=== PATIENT | female | born 1960 | race Caucasian/White ===

== ENCOUNTER → 2019-11-30 10:36 | Outpatient (BNVA) | payer OTHER, MEDICARE, SELFPAY | PROVIDERS: Family Provider Nurse Practitioner Family; PCP Nurse Practitioner Family; Visit Provider Nurse Practitioner Family | DX: E11.9 Type 2 diabetes mellitus without complications (principal); L03.90 Cellulitis, unspecified; I10 Essential (primary) hypertension | CPT/HCPCS: 80053; 81001; 83036; 83880; 85025; 87077; 87086; 87186 ==

== ENCOUNTER → 2019-12-09 13:41 | Outpatient (BNVA) | payer OTHER, MEDICARE, SELFPAY | PROVIDERS: Family Provider Nurse Practitioner Family; PCP Nurse Practitioner Family; Visit Provider Registered Nurse | DX: N39.0 Urinary tract infection, site not specified (principal); E11.9 Type 2 diabetes mellitus without complications | CPT/HCPCS: 81000 ==

== ENCOUNTER → 2020-04-16 10:51 | Outpatient (BNVA) | payer OTHER, MEDICARE, SELFPAY | PROVIDERS: Family Provider Nurse Practitioner Family; PCP Nurse Practitioner Family; Visit Provider Registered Nurse | DX: L02.91 Cutaneous abscess, unspecified (principal) | CPT/HCPCS: 87070; 87077; 87186 ==

== ENCOUNTER → 2020-06-29 08:57 | Outpatient (BNVA) | payer OTHER, MEDICARE, SELFPAY | PROVIDERS: Family Provider Nurse Practitioner Family; PCP Nurse Practitioner Family; Visit Provider Registered Nurse | DX: Z11.59 Encounter for screening for other viral diseases (principal); J06.9 Acute upper respiratory infection, unspecified | CPT/HCPCS: 87635 ==

== ENCOUNTER → 2021-02-04 11:07 | Outpatient (BNVA) | payer OTHER, MEDICARE, SELFPAY | PROVIDERS: Family Provider Nurse Practitioner Family; PCP Nurse Practitioner Family; Visit Provider Nurse Practitioner Family | DX: M79.606 Pain in leg, unspecified (principal); R25.2 Cramp and spasm; M54.5 Low back pain; Z79.899 Other long term (current) drug therapy | CPT/HCPCS: 80053; 82306; 83735 ==

== ENCOUNTER → 2021-02-18 14:03 | Outpatient (BNVA) | payer OTHER, MEDICARE, SELFPAY | PROVIDERS: Family Provider Nurse Practitioner Family; PCP Nurse Practitioner Family; Visit Provider Nurse Practitioner Family | DX: R35.0 Frequency of micturition (principal); R31.9 Hematuria, unspecified; E11.9 Type 2 diabetes mellitus without complications; M51.36 Other intervertebral disc degeneration, lumbar region; N30.00 Acute cystitis without hematuria | CPT/HCPCS: 81000; 87077; 87086; 87184 ==

== ENCOUNTER → 2021-03-28 11:00 | Outpatient (BNVA) | payer OTHER, MEDICARE, SELFPAY | PROVIDERS: Family Provider Nurse Practitioner Family; PCP Nurse Practitioner Family; Visit Provider Nurse Practitioner Family | DX: Z11.52 Encounter for screening for COVID-19 (principal); J22 Unspecified acute lower respiratory infection | CPT/HCPCS: 87635 ==

== ENCOUNTER → 2021-04-19 11:46 | Outpatient (BNVA) | payer OTHER, MEDICARE, SELFPAY | PROVIDERS: Family Provider Nurse Practitioner Family; PCP Nurse Practitioner Family; Visit Provider Registered Nurse | DX: E11.9 Type 2 diabetes mellitus without complications (principal); I10 Essential (primary) hypertension | CPT/HCPCS: 80053; 83036; 85025 ==

== ENCOUNTER 2021-09-26 08:42 | Outpatient (CLI) | payer OTHER, MEDICARE, SELFPAY ==
--- NOTE | 2021-09-26 09:30 | USCV_ITS ---
Nusrat Gant Age: 61 Gender: F : 1960 Exam Date: 09/26/2021 09:12 Ordering Phys: Octavia Ramires MD ([email or web address]) Technologist: SIRENA Exam Location: [facility] [place] Indication: Atrial flutter BP: 134 / 80 HR: 69 Rhythm: Sinus Technical Quality: Adequate MEASUREMENTS (Male / Female) Normal Values 2D ECHO LV Diastolic Diameter PLAX 5.1 cm 4.2 - 5.9 / 3.9 - 5.3 cm LV Systolic Diameter PLAX 3.5 cm IVS Diastolic Thickness 1.4 cm 0.6 - 1.0 / 0.6 - 0.9 cm IVS Systolic Thickness 1.8 cm LVPW Diastolic Thickness 1.0 cm 0.6 - 1.0 / 0.6 - 0.9 cm LVPW Systolic Thickness 1.9 cm LVOT Diameter 2.0 cm LV Ejection Fraction 2D Teich 58.6 % LV Ejection Fraction MOD 2C 63.0 % LV Ejection Fraction 2C AL 63.8 % LA Diameter 4.0 cm Aorta at Sinotubular Diameter 2.0 cm M-MODE Aortic Annulus Diameter 2.5 cm LA Ao Ratio MM 1.9 DOPPLER AV Peak Velocity 159.0 cm/s LVOT Peak Velocity 102.0 cm/s AV Area Cont Eq vti 2.1 cm squared AV Area Cont Eq pk 2.1 cm squared MV Area PHT 4.1 cm squared Mitral E to A Ratio 1.7 MV E' Velocity 107.0 cm/s TR Peak Velocity 381.0 cm/s TR Peak Gradient 58.1 mmHg TV Peak E Velocity 52.0 cm/s Right Atrial Pressure 3.0 mmHg Pulmonary Artery Systolic Pressu 61.1 mmHg PV Peak Velocity 89.0 cm/s RV Acceleration Time 0.1 s RV Ejection Time 0.4 s RV AcT/ET 0.3 FINDINGS Left Ventricle Normal left ventricular size, systolic function and wall thickness, with no regional wall motion abnormalities. Left ventricular ejection fraction is estimated at 65 %. Normal mitral inflow pattern. Right Ventricle Normal right ventricular size and systolic function. RVSP could not be calculated due to incomplete tricuspid regurgitation velocity profile. Right Atrium Normal right atrial size. Left Atrium Moderately increased left atrial size. Mitral Valve Mild mitral annular calcification. No mitral valve stenosis. Trace mitral valve regurgitation. Aortic Valve Aortic valve not well visualized. No aortic valve stenosis. No aortic valve regurgitation. Tricuspid Valve Tricuspid valve not well visualized. Pulmonic Valve Pulmonic valve not well visualized. No pulmonary valve stenosis. Pericardium No pericardial effusion. Prominent epicardial fat. Aorta Normal size aortic root and proximal ascending aorta. Normal sized inferior vena cava. CONCLUSIONS 1. This is a technically difficult study. Ultrasound enhancing agent (Optison) was used per protocol. 2. Normal left ventricular size, systolic function and mildly increased wall thickness, with no regional wall motion abnormalities. Left ventricular ejection fraction is estimated at 65 %. Normal mitral inflow pattern. 3. Normal right ventricular size and systolic function. 4. When compared to previous echocardial dated 08/25/2017, there may not have been any significant change. Octavia Ramires MD (Electronically Signed) Final Date: 28 September 2021 21:26 S
[2021-09-26] MEDS: perflutren protein-a microsphr 0.22 mg/mL SDV 3 mL IV (09:42)
== END 2021-09-26 08:43 | disposition home or self-care (01) ==
LOC: RAD 08:55
PROVIDERS: PCP Nurse Practitioner Family; Visit Provider Internal Medicine Cardiovascular Disease
DX: I48.92 Unspecified atrial flutter (principal); I48.91 Unspecified atrial fibrillation
CPT/HCPCS: C8929

== ENCOUNTER → 2021-11-07 08:33 | Outpatient (BNVA) | payer OTHER, MEDICARE, SELFPAY | PROVIDERS: PCP Nurse Practitioner Family; Visit Provider Nurse Practitioner Family | DX: N61.1 Abscess of the breast and nipple (principal); L02.91 Cutaneous abscess, unspecified | CPT/HCPCS: 87070; 87075; 87205 ==

== ENCOUNTER 2022-03-21 11:00 | Outpatient (CLI) | payer OTHER, MEDICARE, SELFPAY ==
[2022-03-21 11:59] LABS: Estmated Average Glucose 249; Hemoglobin A1C 10.3 % (4.0-6.0)
[2022-03-21 12:12] LABS: Alanine Aminotransferase 28 U/L (0-33); Albumin Level 3.9 g/dL (3.5-5.2); Alkaline Phosphatase 120 IU/L (35-105); Aspartate Amino Transferase 18 U/L (0-32); Blood Urea Nitrogen 14 mg/dL (8-23); Carbon Dioxide 29 mmol/L (22-29); Chloride 100 mmol/L (98-107); Chol HDL Ratio 4.71 mg/dL (0.0-4.40); Cholesterol 160 mg/dL (0-200); Globulin 3.4 g/dL (1.3-4.6); Glomerular Filtration Rate 85.1 mL/min (90-130); Glucose 225 mg/dL (65-115); HDL Cholesterol 34 mg/dL (60-100); LDL Cholesterol Calculated 84 mg/dL (50-129); LDL HDL Ratio 2.47 RATIO (0.00-3.22); Osmolality Calculated 294 mOsm/kg (285-295); Sodium 138 mmol/L (136-145); Total Bilirubin 0.5 mg/dL (0.15-1.2); Total Protein 7.3 g/dL (6.6-8.7); Triglycerides 209 mg/dL (0-150)
== END 2022-03-21 11:01 | disposition home or self-care (01) ==
LOC: LAB 11:07
PROVIDERS: PCP Nurse Practitioner Family; Visit Provider Internal Medicine
DX: E11.65 Type 2 diabetes mellitus with hyperglycemia (principal); E78.2 Mixed hyperlipidemia
CPT/HCPCS: 80053; 80061; 83036

== ENCOUNTER → 2022-03-28 10:14 | Outpatient (BNVA) | payer MEDICARE, OTHER, SELFPAY | PROVIDERS: PCP Nurse Practitioner Family; Visit Provider Internal Medicine | DX: F17.200 Nicotine dependence, unspecified, uncomplicated (principal); Z79.84 Long term (current) use of oral hypoglycemic drugs; E78.2 Mixed hyperlipidemia; E11.65 Type 2 diabetes mellitus with hyperglycemia; E11.42 Type 2 diabetes mellitus with diabetic polyneuropathy; Z79.4 Long term (current) use of insulin; S09.90XA Unspecified injury of head, initial encounter; Z87.440 Personal history of urinary (tract) infections; E66.01 Morbid (severe) obesity due to excess calories; Z68.42 Body mass index [BMI] 45.0-49.9, adult; X58.XXXA Exposure to other specified factors, initial encounter | CPT/HCPCS: 99214 ==

== ENCOUNTER → 2022-05-01 15:55 | Outpatient (BNVA) | payer MEDICARE, OTHER, SELFPAY | PROVIDERS: PCP Nurse Practitioner Family; Visit Provider Family Medicine | DX: N39.0 Urinary tract infection, site not specified (principal) | CPT/HCPCS: 81003; 87077; 87086; 87184 ==

== ENCOUNTER → 2022-05-30 09:20 | Outpatient (BNVA) | payer MEDICARE, OTHER, SELFPAY | PROVIDERS: PCP Nurse Practitioner Family; Visit Provider Nurse Practitioner Family | DX: N39.0 Urinary tract infection, site not specified (principal); N90.89 Other specified noninflammatory disorders of vulva and perineum | CPT/HCPCS: 81000 ==

== ENCOUNTER → 2022-07-28 10:39 | Outpatient (BNVA) | payer MEDICARE, OTHER, SELFPAY | PROVIDERS: PCP Nurse Practitioner Family; Visit Provider Internal Medicine Cardiovascular Disease | DX: R06.02 Shortness of breath (principal); I48.92 Unspecified atrial flutter; Z79.01 Long term (current) use of anticoagulants; I10 Essential (primary) hypertension; G47.33 Obstructive sleep apnea (adult) (pediatric); F17.210 Nicotine dependence, cigarettes, uncomplicated | CPT/HCPCS: 99214 ==

== ENCOUNTER → 2022-08-19 07:53 | Outpatient (BNVA) | payer OTHER, MEDICARE, SELFPAY | PROVIDERS: PCP Nurse Practitioner Family; Visit Provider Internal Medicine | DX: E11.65 Type 2 diabetes mellitus with hyperglycemia (principal); E11.42 Type 2 diabetes mellitus with diabetic polyneuropathy; E78.2 Mixed hyperlipidemia; S09.90XA Unspecified injury of head, initial encounter; Z87.440 Personal history of urinary (tract) infections; E66.01 Morbid (severe) obesity due to excess calories; Z68.42 Body mass index [BMI] 45.0-49.9, adult; Z79.4 Long term (current) use of insulin; R30.0 Dysuria; X58.XXXA Exposure to other specified factors, initial encounter | CPT/HCPCS: 81000; 99214 ==

== ENCOUNTER 2022-09-09 06:56 | Outpatient (CLI) | payer OTHER, MEDICARE, SELFPAY ==
--- NOTE | 2022-09-09 07:09 | NMCV_ITS ---
NM rock perf SPECT r/s* [id number] Nusrat Gant Age: 62 Gender: F : 1960 Exam Date: 09/09/2022 07:09 Ordering Phys: Octavia Ramires MD ([email or web address]) Technologist: MAURY Tripathi Exam Location: [facility] Indications: EXERTIONAL SHORTNESS OF BREATH STRESS TEST Please see separate stress test report in [facility] for full findings IMAGE PROTOCOL Rest/Stress 1 Lexiscan Day Radiopharmaceutical Dose (mCi) Administration Site Administered by Rest: Tc-99m 10.6 IV MAURY Sanders Sestamibi Stress:Tc-99m 33.0 IV MAURY Sanders Sestamibi Rest: 09-Sep-2022 60 Discovery 630 Stress: 09-Sep-2022 30 Discovery 630 0.4mg Lexiscan. Supine position only as patient was unable to lay prone. SPECT RESULTS Technical Quality: Excellent Raw Data Analysis: Normal Image Corrections: No attenuation or motion correction applied Summed Stress Score: 6 Summed Rest Score: 3 Summed Difference Score: 3 PERFUSION FINDINGS Small sized perfusion abnormality of moderate severity of apical anterior and apical lateral gallegos. FUNCTIONAL RESULTS (calculated via Gated SPECT) Stress Image LV EF (%): 76 Stress EDV (mL):116 TID: 1.09 Stress ESV (mL):28 FUNCTIONAL FINDINGS: The left ventricle is normal in size. Transient Ischemia Dilatation of 1.1. The left ventricular ejection fraction is normal with a value of 76%. There is normal left ventricular wall thickening. IMPRESSIONS 1. Small sized perfusion abnormality of moderate severity of apical anterior and apical lateral gallegos. This may represent attenuation artifact or old myocardial infarction in left anterior descending artery territory. 2. Overall left ventricular systolic function is normal without regional wall motion abnormalities, LVEF=76%. 3. EKG portion of the study will be reported separately. 4. No coronary ischemia based on this study. Octavia Ramires MD (Electronically Signed) Final Date: 09 September 2022 20:27 S
--- NOTE | 2022-09-09 07:09 | ECG_ITS ---
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 Interpretive Statements NAME OF STUDY: LEXISCAN SESTAMIBI STRESS TEST INDICATION: Shortness of Breath PROCEDURE: At the baseline, the blood pressure was 141/80 mm Hg with a heart rate of 77 bpm. The electrocardiogram showed sinus rhythm with artifact. ??? The Lexiscan was infused over a period of 20 seconds. A total of 0.4 milligrams of Lexiscan was infused. The stress phase was continued for a total of 5 minutes. Heart rate at the end of the stress phase was 80 bpm with a blood pressure of 131/84 mm Hg. The EKG at the peak infusion revealed no significant ST-T wave changes. Artifact. ??? Sestamibi was injected 20 seconds after the Lexiscan infusion. ??? Blood pressure at the end of the recovery phase was 129/83 mm Hg with a heart rate of 78 beats per minute. ??? CONCLUSION: 1. No significant EKG changes with the LexiScan infusion. 2. No LexiScan induced chest pain or cardiac arrhythmia. 3. Normal blood pressure and heart rate response. 4. Sestamibi/sestamibi perfusion scan pending; see separate report. Electronically Signed On 09-21-2022 10:26:46 [employer] EXHIBITOR by Octavia Ramires M.D. [id number]
[2022-09-09 07:22] VITALS: BMI 45.1
[2022-09-09] MEDS: regadenoson 0.4 Mg/5 ml Syringe IVP (08:51)
[2022-09-09 09:11] VITALS: BP 129/83; PULSE 81
== END 2022-09-09 06:57 | disposition home or self-care (01) ==
LOC: CDL 07:03
PROVIDERS: PCP Nurse Practitioner Family; Visit Provider Internal Medicine Cardiovascular Disease
DX: R06.02 Shortness of breath (principal)
CPT/HCPCS: 36415; 78452; 93017; 96374; A9500; J2785

== ENCOUNTER → 2022-12-04 12:45 | Outpatient (BNVA) | payer MEDICARE, OTHER, SELFPAY | PROVIDERS: PCP Nurse Practitioner Family; Visit Provider Internal Medicine | DX: E11.42 Type 2 diabetes mellitus with diabetic polyneuropathy (principal); E11.65 Type 2 diabetes mellitus with hyperglycemia; E78.2 Mixed hyperlipidemia; L84 Corns and callosities; E66.01 Morbid (severe) obesity due to excess calories; Z68.42 Body mass index [BMI] 45.0-49.9, adult; Z79.4 Long term (current) use of insulin | CPT/HCPCS: 36415; 80053; 80061; 82044; 83036; 99214 ==

== ENCOUNTER → 2022-12-10 10:08 | Outpatient (BNVA) | payer MEDICARE, OTHER, SELFPAY | PROVIDERS: PCP Nurse Practitioner Family; Visit Provider Podiatrist Foot & Ankle Surgery | DX: I73.9 Peripheral vascular disease, unspecified (principal); E11.9 Type 2 diabetes mellitus without complications; B35.1 Tinea unguium; Z79.4 Long term (current) use of insulin | CPT/HCPCS: 11721; 99203 ==

== ENCOUNTER → 2023-02-20 14:17 | Outpatient (BNVA) | payer MEDICARE, SELFPAY | PROVIDERS: PCP Registered Nurse; Visit Provider Obstetrics & Gynecology | DX: N39.0 Urinary tract infection, site not specified (principal) | CPT/HCPCS: 84315; 87077; 87086; 87184 ==

== ENCOUNTER → 2023-03-09 11:06 | Outpatient (BNVA) | payer MEDICARE, SELFPAY | PROVIDERS: PCP Registered Nurse; Visit Provider Podiatrist Foot & Ankle Surgery | DX: I73.9 Peripheral vascular disease, unspecified (principal); B35.1 Tinea unguium; E11.42 Type 2 diabetes mellitus with diabetic polyneuropathy; E11.65 Type 2 diabetes mellitus with hyperglycemia; Z79.4 Long term (current) use of insulin | CPT/HCPCS: 11721 ==

== ENCOUNTER 2023-03-27 10:25 | Outpatient (CLI) | payer MEDICARE, SELFPAY ==
[2023-03-27 11:18] LABS: Creatinine Urine, Random 159 mg/dL (28-217); Microalbum Creatinine Ratio Ur 6 mg/dL (0-20); Microalbumin Random Urine 1 ug/dL (0-20)
[2023-03-27 11:28] LABS: Alanine Aminotransferase 20 U/L (0-33); Albumin Level 3.7 g/dL (3.5-5.2); Alkaline Phosphatase 133 U/L (35-105); Anion Gap 16.2 (5-19); Aspartate Amino Transferase 19 U/L (0-32); Blood Urea Nitrogen 12 mg/dL (8-23); Calcium 8.8 mg/dL (8.5-10.5); Carbon Dioxide 25 mmol/L (22-29); Chloride 101 mmol/L (98-107); Chol HDL Ratio 4.76 mg/dL (0.0-4.40); Cholesterol 181 mg/dL (0-200); Globulin 3.4 g/dL (1.3-4.6); Glomerular Filtration Rate 84.8 mL/min (90-130); Glucose 280 mg/dL (65-115); HDL Cholesterol 38 mg/dL (60-100); LDL Cholesterol Calculated 109 mg/dL (50-129); LDL HDL Ratio 2.87 RATIO (0.00-3.22); Osmolality Calculated 296 mOsm/kg (285-295); Potassium 4.2 mmol/L (3.5-5.1); Sodium 138 mmol/L (136-145); Total Bilirubin 0.4 mg/dL (0.15-1.2); Total Protein 7.1 g/dL (6.6-8.7); Triglycerides 172 mg/dL (0-150)
[2023-03-27 11:54] LABS: Estmated Average Glucose 209; Hemoglobin A1C 8.9 % (4.0-6.0)
== END 2023-03-27 10:26 | disposition home or self-care (01) ==
PROVIDERS: PCP Registered Nurse; Visit Provider Internal Medicine
DX: E78.2 Mixed hyperlipidemia (principal); E11.65 Type 2 diabetes mellitus with hyperglycemia; Z79.4 Long term (current) use of insulin
CPT/HCPCS: 36415; 80053; 80061; 82044; 83036

== ENCOUNTER → 2023-04-10 07:32 | Outpatient (BNVA) | payer MEDICARE, SELFPAY | PROVIDERS: PCP Registered Nurse; Visit Provider Internal Medicine | DX: E78.2 Mixed hyperlipidemia (principal); E11.65 Type 2 diabetes mellitus with hyperglycemia; E11.42 Type 2 diabetes mellitus with diabetic polyneuropathy; Z79.4 Long term (current) use of insulin; E66.01 Morbid (severe) obesity due to excess calories; Z68.42 Body mass index [BMI] 45.0-49.9, adult | CPT/HCPCS: 99214 ==

== ENCOUNTER → 2023-04-27 10:22 | Outpatient (BNVA) | payer MEDICARE, OTHER, SELFPAY | PROVIDERS: PCP Registered Nurse; Visit Provider Internal Medicine Cardiovascular Disease | DX: R06.02 Shortness of breath (principal); I48.92 Unspecified atrial flutter; I10 Essential (primary) hypertension; G47.33 Obstructive sleep apnea (adult) (pediatric); F17.200 Nicotine dependence, unspecified, uncomplicated; Z86.16 Personal history of COVID-19 | CPT/HCPCS: 99214 ==

== ENCOUNTER → 2023-05-15 08:25 | Outpatient (BNVA) | payer MEDICARE, SELFPAY | PROVIDERS: PCP Registered Nurse; Visit Provider Podiatrist Foot & Ankle Surgery | DX: B35.1 Tinea unguium (principal); I73.9 Peripheral vascular disease, unspecified; E11.42 Type 2 diabetes mellitus with diabetic polyneuropathy; E11.65 Type 2 diabetes mellitus with hyperglycemia; Z79.4 Long term (current) use of insulin | CPT/HCPCS: 11721 ==

== ENCOUNTER → 2023-06-02 13:41 | Outpatient (BNVA) | payer MEDICARE, SELFPAY | PROVIDERS: PCP Registered Nurse; Visit Provider Registered Nurse | DX: R30.0 Dysuria (principal); N39.41 Urge incontinence | CPT/HCPCS: 81000 ==

== ENCOUNTER 2023-06-16 13:28 | Outpatient (RCR) | payer MEDICARE, SELFPAY | END 2023-06-30 23:59 | disposition home or self-care (01) | LOC: SPT 13:28 | PROVIDERS: PCP Registered Nurse; Visit Provider Registered Nurse | DX: N39.41 Urge incontinence (principal); N39.46 Mixed incontinence | CPT/HCPCS: 97110; 97161; 97530 ==

== ENCOUNTER → 2023-06-30 07:31 | Outpatient (BNVA) | payer MEDICARE, OTHER, SELFPAY | PROVIDERS: PCP Registered Nurse; Visit Provider Internal Medicine | DX: E78.2 Mixed hyperlipidemia (principal); E11.65 Type 2 diabetes mellitus with hyperglycemia; E11.42 Type 2 diabetes mellitus with diabetic polyneuropathy; Z79.4 Long term (current) use of insulin; E66.01 Morbid (severe) obesity due to excess calories; Z68.42 Body mass index [BMI] 45.0-49.9, adult | CPT/HCPCS: 99214 ==

== ENCOUNTER → 2023-07-17 07:42 | Outpatient (BNVA) | payer MEDICARE, SELFPAY | PROVIDERS: PCP Registered Nurse; Visit Provider Podiatrist Foot & Ankle Surgery | DX: B35.1 Tinea unguium (principal); I73.9 Peripheral vascular disease, unspecified; E11.42 Type 2 diabetes mellitus with diabetic polyneuropathy; E11.65 Type 2 diabetes mellitus with hyperglycemia; Z79.4 Long term (current) use of insulin | CPT/HCPCS: 11721 ==

== ENCOUNTER → 2023-08-18 11:27 | Outpatient (BNVA) | payer MEDICARE, SELFPAY | PROVIDERS: PCP Registered Nurse; Visit Provider Registered Nurse | DX: R39.9 Unspecified symptoms and signs involving the genitourinary system (principal); N39.0 Urinary tract infection, site not specified; N30.01 Acute cystitis with hematuria | CPT/HCPCS: 81000; 87077; 87086; 87184 ==

== ENCOUNTER → 2023-09-28 14:19 | Outpatient (BNVA) | payer MEDICARE, SELFPAY | PROVIDERS: PCP Registered Nurse; Visit Provider Podiatrist Foot & Ankle Surgery | DX: B35.1 Tinea unguium (principal); I73.9 Peripheral vascular disease, unspecified; E11.42 Type 2 diabetes mellitus with diabetic polyneuropathy; E11.65 Type 2 diabetes mellitus with hyperglycemia; Z79.4 Long term (current) use of insulin | CPT/HCPCS: 11721 ==

== ENCOUNTER → 2023-10-02 09:18 | Outpatient (BNVA) | payer MEDICARE, OTHER, SELFPAY | PROVIDERS: PCP Registered Nurse; Visit Provider Internal Medicine | DX: E78.2 Mixed hyperlipidemia (principal); E11.65 Type 2 diabetes mellitus with hyperglycemia; E11.42 Type 2 diabetes mellitus with diabetic polyneuropathy; Z79.4 Long term (current) use of insulin; S09.90XA Unspecified injury of head, initial encounter; E66.01 Morbid (severe) obesity due to excess calories; Z68.42 Body mass index [BMI] 45.0-49.9, adult; X58.XXXA Exposure to other specified factors, initial encounter | CPT/HCPCS: 99214 ==

== ENCOUNTER → 2024-01-01 07:43 | Outpatient (BNVA) | payer MEDICARE, SELFPAY | PROVIDERS: PCP Registered Nurse; Visit Provider Podiatrist Foot & Ankle Surgery | DX: I73.9 Peripheral vascular disease, unspecified (principal); B35.1 Tinea unguium; E11.42 Type 2 diabetes mellitus with diabetic polyneuropathy; E11.65 Type 2 diabetes mellitus with hyperglycemia; Z79.4 Long term (current) use of insulin; E78.2 Mixed hyperlipidemia | CPT/HCPCS: 11721; 36415; 80053; 80061; 82044; 83036; 99213 ==

== ENCOUNTER → 2024-01-04 09:09 | Outpatient (BNVA) | payer MEDICARE, SELFPAY | PROVIDERS: PCP Registered Nurse; Visit Provider Internal Medicine | DX: E11.65 Type 2 diabetes mellitus with hyperglycemia (principal); E78.2 Mixed hyperlipidemia; E11.42 Type 2 diabetes mellitus with diabetic polyneuropathy; Z79.4 Long term (current) use of insulin; S09.90XA Unspecified injury of head, initial encounter; E66.01 Morbid (severe) obesity due to excess calories; Z68.42 Body mass index [BMI] 45.0-49.9, adult; L84 Corns and callosities; X58.XXXA Exposure to other specified factors, initial encounter | CPT/HCPCS: 99214 ==

== ENCOUNTER → 2024-02-11 10:35 | Outpatient (BNVA) | payer MEDICARE, SELFPAY | PROVIDERS: PCP Registered Nurse; Visit Provider Registered Nurse | DX: R60.0 Localized edema (principal); J44.9 Chronic obstructive pulmonary disease, unspecified; J40 Bronchitis, not specified as acute or chronic; I10 Essential (primary) hypertension | CPT/HCPCS: 83880 ==

== ENCOUNTER 2024-03-04 11:18 | Outpatient (CLI) | payer MEDICARE, SELFPAY ==
--- NOTE | 2024-03-04 12:00 | CTR_ITS ---
PROCEDURE INFORMATION: Exam: CTA Abdominal Aorta and Bilateral Lower Extremities (Run-off) With Contrast Exam date and time: 03/04/2024 12:16 PM Age: 63 years old Clinical indication: Prior surgery; Surgery date: 6+ months; Surgery type: Hyst, appy; Patient HX: Poor circulation, lower extremities numbness and pain TECHNIQUE: Imaging protocol: Computed tomographic angiography of the of the abdominal aorta, pelvis and bilateral lower extremities with contrast. 3D rendering (Not supervised by radiologist): MIP and/or 3D reconstructed images were created by the technologist. Radiation optimization: All CT scans at this facility use at least one of these dose optimization techniques: automated exposure control; mA and/or kV adjustment per patient size (includes targeted exams where dose is matched to clinical indication); or iterative reconstruction. Contrast material: OMNI 350; Contrast volume: 125 ml; Contrast route: INTRAVENOUS (IV); COMPARISON: No relevant prior studies available. RADIATION DOSE METRICS: Total DLP (mGy-cm): 1777.07 FINDINGS: Aorta: Moderate atherosclerosis of the aorta without stenosis, occlusion, or aneurysms. Celiac trunk and mesenteric arteries: No occlusion or significant stenosis. Renal arteries: No occlusion or significant stenosis. Right iliac arteries: Near total occlusion proximal segments/takeoff right external iliac artery with distal reconstitution of flow. The area of severe stenosis appears to be of chronic etiology considering the abnormal decrease in vessel caliber at this segment. Right femoral/popliteal arteries: Small caliber right superficial femoral artery with mid/distal occlusion. Reconstitution of flow distal right superficial femoral artery by collateral circulation. Right popliteal artery patent without stenosis or occlusion. Right deep femoral artery patent. Right infrapopliteal arteries: Decreased enhancement distal segments right anterior tibial artery and right peroneal artery, likely related to inflow disease. Right posterior tibial artery patent. Right dorsalis pedis artery either occluded or with significantly decreased flow. Right plantar artery patent. Left iliac arteries: Ulcerated plaques with small intimal defects throughout the left common iliac artery. Left external iliac artery patent without significant stenosis. Left femoral/popliteal arteries: Left common femoral artery patent without stenosis. Left superficial femoral artery patent with at least 50% luminal stenosis at the mid segments and distal segments. Left popliteal artery patent without stenosis or occlusion. Left infrapopliteal arteries: Decreased contrast enhancement in the left anterior tibial and peroneal arteries with very minimal flow at the distal segments. This is likely related to severe inflow disease. Left posterior tibial artery completely patent without stenosis/occlusion. Left dorsalis pedis artery either occluded or with significantly decreased flow. Left plantar artery remains patent, however with decreased flow. Liver: 19 cm hepatomegaly and severe diffuse hepatic steatosis. No liver lesions. Scattered calcified liver granulomas are benign. Gallbladder and biliary ducts: Cholelithiasis. No biliary ductal dilation. Pancreas: Unremarkable. No mass. No ductal dilation. Spleen: The spleen demonstrates punctate calcifications, consistent with remote granulomatous organism exposure. Adrenal glands: 1.5 cm right adrenal nodule. Kidneys and ureters: Subcentimeter right renal hypodense lesions are too small to characterize but most probably benign representing cysts. Consider correlation with nonemergent ultrasound. 10 mm left renal lower pole exophytic enhancing or dense lesion. No hydronephrosis or perinephric inflammation. No hydroureter. Stomach and bowel: Moderate constipation without bowel inflammation or obstruction. Appendix: No evidence of appendicitis. Urinary bladder: Decompressed bladder. Reproductive: Hysterectomy. Intraperitoneal space: Unremarkable. No free air. No significant fluid collection. Lymph nodes: No lymphadenopathy. Bones/joints: Mild multilevel degenerative changes of the spine, as manifested by multilevel anterior osteophytes and multilevel decrease in intervertebral disc space. No acute skeletal abnormality or aggressive osseous lesion. Soft tissues: Unremarkable. CT/CT angio abd aorta runof [id number] IMPRESSION: 1. Near total occlusion proximal segments/takeoff right external iliac artery with distal reconstitution of flow. The area of severe stenosis appears to be of chronic etiology considering the abnormal decrease in vessel caliber at this segment. 2. Small caliber right superficial femoral artery with mid/distal occlusion. 3. Decreased enhancement distal segments right anterior tibial artery and right peroneal artery, likely related to inflow disease. 4. Right dorsalis pedis artery either occluded or with significantly decreased flow. 5. Decreased contrast enhancement in the left anterior tibial and peroneal arteries with very minimal flow at the distal segments. This is likely related to severe inflow disease. 6. Left dorsalis pedis artery either occluded or with significantly decreased flow. 7. Ulcerated plaques with small intimal defects throughout the left common iliac artery. 8. Left superficial femoral artery patent with at least 50% luminal stenosis at the mid segments and distal segments. 9. 1.5 cm right adrenal nodule. In a patient with no cancer history, consider 12 month follow-up adrenal CT. (Reference: Smith) 10. 10 mm left renal lower pole exophytic enhancing or dense lesion. Prompt evaluation with renal ultrasound recommended for adequate characterization. REFERENCES: Smith SMILEY et al. Management of Incidental Adrenal Masses: A White Paper of the ACR Incidental Findings Committee. J Am Stas Radiol. 2017;14(8):7558-5345.
[2024-03-04 12:06] LABS: Blood Urea Nitrogen 14 mg/dL (8-23); Glomerular Filtration Rate 84.5 mL/min (90-130)
[2024-03-04] MEDS: iohexol 350 mg/mL 500 mL Btl (per mL) IV (12:32)
== END 2024-03-04 11:19 | disposition home or self-care (01) ==
LOC: RAD 11:18
PROVIDERS: PCP Registered Nurse; Visit Provider Podiatrist Foot & Ankle Surgery
DX: I73.9 Peripheral vascular disease, unspecified (principal); I74.5 Embolism and thrombosis of iliac artery; I77.1 Stricture of artery; R93.6 Abnormal findings on diagnostic imaging of limbs; E27.8 Other specified disorders of adrenal gland; N28.9 Disorder of kidney and ureter, unspecified
CPT/HCPCS: 75635; 82565; 84520; 99214; Q9967

== ENCOUNTER → 2024-03-11 07:50 | Outpatient (BNVA) | payer MEDICARE, SELFPAY | PROVIDERS: PCP Registered Nurse; Visit Provider Podiatrist Foot & Ankle Surgery | DX: I73.9 Peripheral vascular disease, unspecified (principal); B35.1 Tinea unguium; E11.42 Type 2 diabetes mellitus with diabetic polyneuropathy; E11.65 Type 2 diabetes mellitus with hyperglycemia; Z79.4 Long term (current) use of insulin | CPT/HCPCS: 11721; 99213 ==

== ENCOUNTER → 2024-03-22 11:36 | Outpatient (BNVA) | payer MEDICARE, SELFPAY | PROVIDERS: PCP Registered Nurse; Visit Provider Internal Medicine | DX: R06.02 Shortness of breath (principal); I48.92 Unspecified atrial flutter; I10 Essential (primary) hypertension; E11.9 Type 2 diabetes mellitus without complications; E78.00 Pure hypercholesterolemia, unspecified; G47.33 Obstructive sleep apnea (adult) (pediatric); F17.200 Nicotine dependence, unspecified, uncomplicated; Z99.89 Dependence on other enabling machines and devices; Z79.4 Long term (current) use of insulin | CPT/HCPCS: 99214 ==

== ENCOUNTER → 2024-04-07 08:37 | Outpatient (BNVA) | payer MEDICARE, SELFPAY | PROVIDERS: PCP Registered Nurse; Visit Provider Internal Medicine | DX: E11.65 Type 2 diabetes mellitus with hyperglycemia (principal); E78.2 Mixed hyperlipidemia; E11.42 Type 2 diabetes mellitus with diabetic polyneuropathy; R21 Rash and other nonspecific skin eruption; Z79.4 Long term (current) use of insulin; S09.90XA Unspecified injury of head, initial encounter; E66.01 Morbid (severe) obesity due to excess calories; Z68.42 Body mass index [BMI] 45.0-49.9, adult; X58.XXXA Exposure to other specified factors, initial encounter | CPT/HCPCS: 99214 ==

== ENCOUNTER → 2024-04-11 10:16 | Outpatient (BNVA) | payer MEDICARE, OTHER, SELFPAY | PROVIDERS: PCP Registered Nurse; Visit Provider Internal Medicine Critical Care Medicine | DX: J84.9 Interstitial pulmonary disease, unspecified; J96.11 Chronic respiratory failure with hypoxia; J98.4 Other disorders of lung; J44.9 Chronic obstructive pulmonary disease, unspecified; J44.1 Chronic obstructive pulmonary disease with (acute) exacerbation; K21.9 Gastro-esophageal reflux disease without esophagitis; G47.33 Obstructive sleep apnea (adult) (pediatric); E66.01 Morbid (severe) obesity due to excess calories; Z68.41 Body mass index [BMI] 40.0-44.9, adult; F17.210 Nicotine dependence, cigarettes, uncomplicated; I10 Essential (primary) hypertension; I48.91 Unspecified atrial fibrillation; Z71.6 Tobacco abuse counseling; Z71.89 Other specified counseling | CPT/HCPCS: 99204 ==

== ENCOUNTER 2024-04-14 08:54 | Outpatient (CLI) | payer MEDICARE, OTHER, SELFPAY ==
--- NOTE | 2024-04-14 09:30 | CT_ITS ---
WS: [id number] CT chest wo con [id number] HISTORY: Progressive TORRES TECHNIQUE: Axial imaging performed through the thorax. Coronal and sagittal reformats are submitted. All CT scans at [facility] use at least one of these dose optimization techniques: automated exposure control; mA and/or kV adjustment per patient size (includes targeted exams where dose is mat ched to clinical indication); or iterative reconstruction. CONTRAST: None DLP: 750.27 mGy.cm COMPARISON: None available. Lungs and central airway: Markedly abnormal appearance of the lungs. Diffuse, bilateral and multi lob ar small nodular spiculations are identified. There are additional areas of mild groundglass attenuat ion. Slightly greater nodularity and spiculation in the lower lobes. There is no mass or dense consol idation. No pneumothorax. Pleura: Normal. No pleural effusion. Heart and pericardium: Mild cardiomegaly. Mediastinum and kyel: Would-be difficult to exclude hilar lymph nodes without IV contrast. There are small inferior RIGHT paratracheal lymph nodes measuring up to 12 mm. There are a few additional subce ntimeter lymph nodes scattered in the mediastinum. Vessels: Mildly prominent pulmonary artery measures 3.5 cm. Mild atherosclerosis aorta. Chest wall and lower neck: No soft tissue masses. Upper abdomen: Hepatic and splenic granulomata. The liver is incompletely included on this examinatio n but does appear large. Cholelithiasis. Mild thickening of the adrenal glands. Osseous structures: No destructive process. CT/CT chest wo con [id number] IMPRESSION: 1. Diffusely abnormal lungs. There are innumerable scattered slightly spiculat ed opacification throughout both lungs in a slightly tree-in-bud distribution s uggesting small airways disease. There is a slightly spiculated appearance this is probably related to an infectious process. Consider viral pneumonia, TB and fungal pneumonitis. Recommend follow-up after treatment to ensure resolution. 2. Mild cardiomegaly. 3. Indeterminate RIGHT paratracheal lymph node 12 mm. 4. Cholelithiasis.
== END 2024-04-14 08:55 | disposition home or self-care (01) ==
LOC: RAD 08:54
PROVIDERS: PCP Registered Nurse; Visit Provider Internal Medicine Critical Care Medicine
DX: R06.09 Other forms of dyspnea (principal); J96.11 Chronic respiratory failure with hypoxia; J98.4 Other disorders of lung; F17.200 Nicotine dependence, unspecified, uncomplicated; K80.20 Calculus of gallbladder without cholecystitis without obstruction; I51.7 Cardiomegaly; R91.8 Other nonspecific abnormal finding of lung field
CPT/HCPCS: 71250

== ENCOUNTER → 2024-04-18 11:17 | Outpatient (BNVA) | payer MEDICARE, OTHER, SELFPAY | PROVIDERS: PCP Registered Nurse; Visit Provider Registered Nurse | DX: J84.9 Interstitial pulmonary disease, unspecified (principal) | CPT/HCPCS: 82785; 85025; 86003 ==

== ENCOUNTER 2024-05-05 08:37 | Outpatient (CLI) | payer OTHER, MEDICARE, SELFPAY ==
[2024-05-05 09:31] VITALS: PULSE 77; RESP 18; O2SAT 92
[2024-05-05] MEDS: albuterol 2.5 mg/3 mL Neb INHALATION (09:31)
== END 2024-05-05 08:38 | disposition home or self-care (01) ==
LOC: RT 08:38
PROVIDERS: PCP Registered Nurse; Visit Provider Internal Medicine Critical Care Medicine
DX: J44.89 Other specified chronic obstructive pulmonary disease (principal)
CPT/HCPCS: 94060; 94726; 94729

== ENCOUNTER → 2024-05-13 08:14 | Outpatient (BNVA) | payer MEDICARE, OTHER, SELFPAY | PROVIDERS: PCP Registered Nurse; Visit Provider Podiatrist Foot & Ankle Surgery | DX: B35.1 Tinea unguium (principal); I73.9 Peripheral vascular disease, unspecified; E11.42 Type 2 diabetes mellitus with diabetic polyneuropathy; E11.65 Type 2 diabetes mellitus with hyperglycemia | CPT/HCPCS: 11721 ==

== ENCOUNTER → 2024-09-15 08:11 | Outpatient (BNVA) | payer MEDICARE, SELFPAY | PROVIDERS: PCP Registered Nurse; Visit Provider Podiatrist Foot & Ankle Surgery | DX: B35.1 Tinea unguium (principal); I73.9 Peripheral vascular disease, unspecified; E11.42 Type 2 diabetes mellitus with diabetic polyneuropathy; E11.65 Type 2 diabetes mellitus with hyperglycemia | CPT/HCPCS: 11721; 99213 ==

== ENCOUNTER → 2024-10-10 14:43 | Outpatient (BNVA) | payer MEDICARE, SELFPAY | PROVIDERS: PCP Registered Nurse; Visit Provider Internal Medicine Cardiovascular Disease | DX: I48.91 Unspecified atrial fibrillation (principal); M54.9 Dorsalgia, unspecified; I73.9 Peripheral vascular disease, unspecified; I87.2 Venous insufficiency (chronic) (peripheral); I10 Essential (primary) hypertension; Z79.01 Long term (current) use of anticoagulants | CPT/HCPCS: 99214 ==

== ENCOUNTER 2024-10-14 12:54 | Outpatient (CLI) | payer MEDICARE, SELFPAY ==
[2024-10-14 13:46] LABS: Creatinine Urine, Random 151 mg/dL (28-217); Microalbum Creatinine Ratio Ur 20 mg/dL (0-20); Microalbumin Random Urine 3 ug/dL (0-20)
[2024-10-14 13:47] LABS: Alanine Aminotransferase 15 U/L (0-33); Albumin Level 3.6 g/dL (3.5-5.2); Alkaline Phosphatase 141 U/L (35-105); Anion Gap 16.1 (5-19); Aspartate Amino Transferase 11 U/L (0-32); Blood Urea Nitrogen 13 mg/dL (8-23); Calcium 8.9 mg/dL (8.5-10.5); Carbon Dioxide 26 mmol/L (22-29); Chloride 99 mmol/L (98-107); Chol HDL Ratio 4.82 mg/dL (0.0-4.40); Cholesterol 159 mg/dL (0-200); Glomerular Filtration Rate 84.2 mL/min (90-130); Glucose 212 mg/dL (65-115); HDL Cholesterol 33 mg/dL (60-100); LDL Cholesterol Calculated 87 mg/dL (50-129); LDL HDL Ratio 2.64 RATIO (0.00-3.22); Osmolality Calculated 290 mOsm/kg (285-295); Potassium 4.1 mmol/L (3.5-5.1); Sodium 137 mmol/L (136-145); Total Bilirubin 0.3 mg/dL (0.15-1.2); Total Protein 7.6 g/dL (6.6-8.7); Triglycerides 194 mg/dL (0-150)
[2024-10-14 13:51] LABS: Estmated Average Glucose 183
== END 2024-10-14 12:55 | disposition home or self-care (01) ==
LOC: LAB 12:56
PROVIDERS: PCP Registered Nurse; Visit Provider Internal Medicine
DX: E78.2 Mixed hyperlipidemia (principal); E11.65 Type 2 diabetes mellitus with hyperglycemia
CPT/HCPCS: 80053; 80061; 82044; 83036

== ENCOUNTER → 2024-10-28 08:08 | Outpatient (BNVA) | payer MEDICARE, SELFPAY | PROVIDERS: PCP Registered Nurse; Visit Provider Internal Medicine | DX: E78.2 Mixed hyperlipidemia (principal); E11.65 Type 2 diabetes mellitus with hyperglycemia; E11.42 Type 2 diabetes mellitus with diabetic polyneuropathy; Z79.4 Long term (current) use of insulin; E66.01 Morbid (severe) obesity due to excess calories; Z68.42 Body mass index [BMI] 45.0-49.9, adult; L84 Corns and callosities; R21 Rash and other nonspecific skin eruption; B37.9 Candidiasis, unspecified; I10 Essential (primary) hypertension | CPT/HCPCS: 99214 ==

== ENCOUNTER → 2024-11-15 09:07 | Outpatient (BNVA) | payer MEDICARE, SELFPAY | PROVIDERS: PCP Registered Nurse; Visit Provider Podiatrist Foot & Ankle Surgery | DX: E11.42 Type 2 diabetes mellitus with diabetic polyneuropathy (principal); B35.1 Tinea unguium; I73.9 Peripheral vascular disease, unspecified; E11.65 Type 2 diabetes mellitus with hyperglycemia; L90.9 Atrophic disorder of skin, unspecified; M76.71 Peroneal tendinitis, right leg | CPT/HCPCS: 11721; 99213 ==

== ENCOUNTER → 2024-12-20 13:40 | Outpatient (BNVA) | payer MEDICARE, SELFPAY | PROVIDERS: PCP Registered Nurse; Visit Provider Internal Medicine | DX: R06.02 Shortness of breath (principal); I48.4 Atypical atrial flutter; Z79.01 Long term (current) use of anticoagulants; I10 Essential (primary) hypertension; E11.9 Type 2 diabetes mellitus without complications; Z79.85 Long-term (current) use of injectable non-insulin antidiabetic drugs; E78.00 Pure hypercholesterolemia, unspecified; G47.33 Obstructive sleep apnea (adult) (pediatric); F17.210 Nicotine dependence, cigarettes, uncomplicated | CPT/HCPCS: 99213 ==

== ENCOUNTER → 2025-01-17 08:41 | Outpatient (BNVA) | payer MEDICARE, SELFPAY | PROVIDERS: PCP Registered Nurse; Visit Provider Podiatrist Foot & Ankle Surgery | DX: E11.42 Type 2 diabetes mellitus with diabetic polyneuropathy (principal); B35.1 Tinea unguium; I73.9 Peripheral vascular disease, unspecified; E11.65 Type 2 diabetes mellitus with hyperglycemia | CPT/HCPCS: 11721 ==

== ENCOUNTER → 2025-02-07 11:32 | Outpatient (BNVA) | payer MEDICARE, SELFPAY | PROVIDERS: PCP Registered Nurse; Visit Provider Registered Nurse | DX: N39.0 Urinary tract infection, site not specified (principal) | CPT/HCPCS: 81000; 87086 ==

== ENCOUNTER → 2025-02-24 10:13 | Outpatient (BNVA) | payer MEDICARE, SELFPAY | PROVIDERS: PCP Registered Nurse; Visit Provider Registered Nurse | DX: R31.9 Hematuria, unspecified (principal); N89.8 Other specified noninflammatory disorders of vagina | CPT/HCPCS: 81000; 87070; 87205 ==

== ENCOUNTER → 2025-03-02 13:51 | Outpatient (BNVA) | payer MEDICARE, SELFPAY | PROVIDERS: PCP Registered Nurse; Visit Provider Obstetrics & Gynecology | DX: N93.9 Abnormal uterine and vaginal bleeding, unspecified (principal) | CPT/HCPCS: 87255 ==

== ENCOUNTER 2025-03-06 12:57 | Outpatient (CLI) | payer MEDICARE, SELFPAY ==
--- NOTE | 2025-03-06 13:15 | US_ITS ---
WS: [id number] Exam: US renal BI* [id number] Date/Time of Exam: 03/06/2025 1:05 PM Reason For Exam: N28.9 - Disorder of kidney and ureter, unspecified Some images are not optimal due to body habitus. The kidneys are of normal size, shape and location. A 1.1 cm probable cyst seen at the lower pole the LEFT kidney. No definite solid renal masses were identified. No sign of renal obstruction. The renal parenchyma is relatively well-maintained. The RIGHT kidney measures 11.5 x 5 x 4.5 cm. The LEFT kidney measures 10.6 x 5.5 x 5.3 cm. The renal cortex measures 1.1 cm in greatest thickness for both the RIGHT and LEFT kidneys. The bladder was incompletely distended for optimal evaluation. US/US renal BI* [id number] IMPRESSION: 1. A 1 cm low-attenuation nodule at the lower pole of the LEFT kidney most like ly representing a small cyst. No definite solid renal masses were identified. T he bilateral kidneys were otherwise unremarkable. 2. Incomplete distention of urinary bladder for optimal evaluation.
== END 2025-03-06 12:58 | disposition home or self-care (01) ==
LOC: RAD 12:58
PROVIDERS: PCP Registered Nurse; Visit Provider Registered Nurse
DX: N28.9 Disorder of kidney and ureter, unspecified (principal); R93.422 Abnormal radiologic findings on diagnostic imaging of left kidney
CPT/HCPCS: 76770

== ENCOUNTER 2025-04-05 08:28 | Outpatient (CLI) | payer MEDICARE, SELFPAY ==
--- NOTE | 2025-04-05 08:41 | CT_ITS ---
WS: [id number] CT ABDOMEN AND PELVIS WITH AND WITHOUT CONTRAST HISTORY: 1.5 CM R ADRENAL NODULE TECHNIQUE: Unenhanced 5 mm axial imaging first performed through the abdomen. Post contrast imaging through the abdomen and pelvis. Oral contrast has not been provided. Sagittal and coronal reformats are submitted. All CT scans at [facility] use at least one of these dose optimization techniques: automated exposure control; mA and/or kV adjustment per patient size (includes targeted exams where dose is matched to clinical indication); or iterative reconstruction. CONTRAST: Omnipaque 350; 95 mL IV. DLP: 2155.91 mGy.cm COMPARISON: 03/04/2024, chest CT 04/14/2024 Very small well-circumscribed RIGHT adrenal nodule is identified. Nodule measures approximately 11 mm in its maximum diameter. Absolute washout value of 78% is consistent with a benign adenoma. There is been no increase in size of this nodule since 03/04/2024. Normal LEFT adrenal gland. Lung bases are clear. Heart is slightly enlarged. Small hiatal hernia. Liver is slightly enlarged. Hepatic and splenic granulomata. No hepatobiliary dilatation. Normal gallbladder distention with cholelithiasis. Normal pancreas. No renal obstruction. Hyperdense exophytic nodule from the lower pole LEFT kidney measures 7 mm. There is no enhancement. Moderate atherosclerosis aorta. No GI tract obstruction or colitis. Small central mesenteric lymph nodes. No ascites. Urinary bladder is not distended. No destructive bone lesions. CT/CT abdomen pelvis wo/w [id number] IMPRESSION: 1. 11 mm RIGHT adrenal adenoma. 2. Mild hepatomegaly. 3. Hypodense nodule lower pole LEFT kidney measures 7 mm. Consistent with a be nign cyst containing proteinaceous material. No enhancement. 4. No GI tract obstruction. 5. Cholelithiasis without acute cholecystitis.
[2025-04-05] MEDS: iohexol 350 mg/mL 500 mL Btl (per mL) IV (09:34)
[2025-04-05 09:52] LABS: Blood Urea Nitrogen 12 mg/dL (8-23)
== END 2025-04-05 08:29 | disposition home or self-care (01) ==
LOC: RAD 08:29
PROVIDERS: PCP Registered Nurse; Visit Provider Registered Nurse
DX: N28.1 Cyst of kidney, acquired (principal); D35.01 Benign neoplasm of right adrenal gland; K80.20 Calculus of gallbladder without cholecystitis without obstruction; K44.9 Diaphragmatic hernia without obstruction or gangrene
CPT/HCPCS: 74178; 82565; 84520

== ENCOUNTER → 2025-04-10 13:01 | Outpatient (BNVA) | payer MEDICARE, SELFPAY | PROVIDERS: PCP Registered Nurse; Visit Provider Podiatrist Foot & Ankle Surgery | DX: E11.42 Type 2 diabetes mellitus with diabetic polyneuropathy (principal); B35.1 Tinea unguium; I73.9 Peripheral vascular disease, unspecified; E11.65 Type 2 diabetes mellitus with hyperglycemia | CPT/HCPCS: 11721 ==

== ENCOUNTER 2025-04-13 10:40 | Outpatient (CLI) | payer MEDICARE, SELFPAY ==
[2025-04-13 12:20] LABS: Creatinine Urine, Random 120 mg/dL (28-217); Microalbum Creatinine Ratio Ur 17 mg/dL (0-20)
[2025-04-13 12:27] LABS: Alanine Aminotransferase 16 U/L (0-33); Albumin Level 3.9 g/dL (3.5-5.2); Alkaline Phosphatase 136 U/L (35-105); Anion Gap 17.3 (5-19); Aspartate Amino Transferase 12 U/L (0-32); Blood Urea Nitrogen 14 mg/dL (8-23); Calcium 8.8 mg/dL (8.5-10.5); Carbon Dioxide 25 mmol/L (22-29); Chloride 101 mmol/L (98-107); Cholesterol 190 mg/dL (0-200); Globulin 3.6 g/dL (1.3-4.6); Glucose 175 mg/dL (65-115); HDL Cholesterol 34 mg/dL (60-100); Osmolality Calculated 293 mOsm/kg (285-295); Potassium 4.3 mmol/L (3.5-5.1); Sodium 139 mmol/L (136-145); Total Protein 7.5 g/dL (6.6-8.7); Triglycerides 191 mg/dL (0-150)
== END 2025-04-13 10:41 | disposition home or self-care (01) ==
PROVIDERS: PCP Registered Nurse; Visit Provider Internal Medicine
DX: I10 Essential (primary) hypertension (principal); B37.9 Candidiasis, unspecified; R21 Rash and other nonspecific skin eruption; L84 Corns and callosities; E66.01 Morbid (severe) obesity due to excess calories; Z68.42 Body mass index [BMI] 45.0-49.9, adult; Z79.4 Long term (current) use of insulin; E11.42 Type 2 diabetes mellitus with diabetic polyneuropathy; E11.65 Type 2 diabetes mellitus with hyperglycemia; E78.2 Mixed hyperlipidemia
CPT/HCPCS: 36415; 80053; 80061; 82044

== ENCOUNTER → 2025-04-28 08:24 | Outpatient (BNVA) | payer MEDICARE, SELFPAY | PROVIDERS: PCP Registered Nurse; Visit Provider Internal Medicine | DX: E11.65 Type 2 diabetes mellitus with hyperglycemia (principal); E11.42 Type 2 diabetes mellitus with diabetic polyneuropathy; Z79.4 Long term (current) use of insulin; E78.2 Mixed hyperlipidemia; E66.01 Morbid (severe) obesity due to excess calories; Z68.42 Body mass index [BMI] 45.0-49.9, adult; I10 Essential (primary) hypertension | CPT/HCPCS: 99214 ==

== ENCOUNTER → 2025-06-13 13:19 | Outpatient (BNVA) | payer MEDICARE, SELFPAY | PROVIDERS: PCP Registered Nurse; Visit Provider Podiatrist Foot & Ankle Surgery | DX: E11.42 Type 2 diabetes mellitus with diabetic polyneuropathy (principal); B35.1 Tinea unguium; I73.9 Peripheral vascular disease, unspecified; E11.65 Type 2 diabetes mellitus with hyperglycemia | CPT/HCPCS: 11721 ==

== ENCOUNTER → 2025-06-14 07:32 | Outpatient (BNVA) | payer MEDICARE, SELFPAY | PROVIDERS: PCP Registered Nurse; Visit Provider Registered Nurse | DX: J44.1 Chronic obstructive pulmonary disease with (acute) exacerbation (principal); I10 Essential (primary) hypertension | CPT/HCPCS: 85025 ==